=== PATIENT | male | born 1960 | race Caucasian/White ===

== ENCOUNTER 2023-02-01 09:24 | Outpatient (CLI) | payer OTHER | END 2023-02-01 09:25 | disposition home or self-care (01) | LOC: CSHCT 09:24 | PROVIDERS: ATTEND Family Medicine | DX: Z12.2 Encounter for screening for malignant neoplasm of respiratory organs (principal); F17.210 Nicotine dependence, cigarettes, uncomplicated; N50.812 Left testicular pain; K76.0 Fatty (change of) liver, not elsewhere classified | CPT/HCPCS: 71271; 76870 ==

== ENCOUNTER 2024-03-04 06:10 | Day surgery (SDC) | payer OTHER ==
[2024-02-29 14:17] VITALS: BMI 25.1
[2024-03-04] MEDS ORDERED: PROPOFOL 60 ML ONE (07:18)
[2024-03-04] MEDS ORDERED: fentaNYL 50 mcg/mL 1 mL Vial ONE (07:23)
[2024-03-04] MEDS ORDERED: Glycopyrrolate 0.2 MG/ML 5 ML SYRINGE ONE (07:24)
[2024-03-04] MEDS ORDERED: Ondansetron PF 4 MG/2 ML Vial ONE (08:01)
[2024-03-04] MEDS ORDERED: PROPOFOL 40 ML ONE (08:20)
[2024-03-04] MEDS ORDERED: PHENYLEPHRINE-NS 100 MCG/ML 10 ML SYRINGE ONE (08:28)
== END 2024-03-04 09:30 | disposition home or self-care (01) ==
LOC: CSHSDC 06:10
PROVIDERS: ATTEND Internal Medicine Gastroenterology
PROC: 0DJD8ZZ Inspection of Lower Intestinal Tract, Via Natural or Artificial Opening Endoscopic (ICD-10-PCS; principal; 2024-03-04)
DX: R19.5 Other fecal abnormalities (principal); K57.30 Diverticulosis of large intestine without perforation or abscess without bleeding; K63.89 Other specified diseases of intestine; E11.9 Type 2 diabetes mellitus without complications; I10 Essential (primary) hypertension; F17.210 Nicotine dependence, cigarettes, uncomplicated
CPT/HCPCS: J2405; J2704; J3010

== ENCOUNTER 2024-03-05 09:43 | Outpatient (CLI) | payer OTHER | END 2024-03-05 09:44 | disposition home or self-care (01) | LOC: CSHRAD 09:43 | PROVIDERS: ATTEND Internal Medicine Gastroenterology | DX: D49.0 Neoplasm of unspecified behavior of digestive system (principal); K56.699 Other intestinal obstruction unspecified as to partial versus complete obstruction; K57.30 Diverticulosis of large intestine without perforation or abscess without bleeding | CPT/HCPCS: 74270 ==